=== PATIENT | male | born 1995 | race Caucasian/White ===

== ENCOUNTER 2017-03-26 20:52 | Emergency (ER) | payer OTHER ==
[~2017-03-26] VITALS: Ht 170.2 cm; Wt 65.8 kg
[~2017-03-26 20:52] MED LIST: BUTASPCAFT; Bactrim Ds Tab1 EACH PO; CEPH500 PO; CODBUTASA PO; Esgic Tablet1 EACH PO; IBUP600 PO; Norco 5-325 Ta1 EACH PO; Percocet 5-3251 EACH PO; SUMA25 PO; TOPI25 PO
[2017-03-28 00:42] LABS: Source Urine
[2017-07-17] MEDS ORDERED: NAPR220 PO (15:11)
[2017-07-17] MEDS ORDERED: BUTALBITAL-ACE1 EACH PO (15:15)
[2017-07-17] MEDS ORDERED: Bactrim Ds Tab1 EACH PO (15:33)
[2017-11-08] MEDS ORDERED: IBUP800 (20:30)
== END 2017-03-26 22:47 | disposition home or self-care (01) ==
LOC: ER 20:52
PROVIDERS: Physician Assistant
DX: R30.0 Dysuria (principal); F17.200 Nicotine dependence, unspecified, uncomplicated
CPT/HCPCS: 36415; 86592; 87491; 87591; 96372; 99283; J0696

== ENCOUNTER 2017-06-17 15:56 | Emergency (ER) | payer OTHER ==
[~2017-06-17] VITALS: Ht 170.2 cm; Wt 68.0 kg
== END 2017-06-17 17:28 | disposition home or self-care (01) ==
LOC: ER 15:56
DX: G43.909 Migraine, unspecified, not intractable, without status migrainosus (principal); F17.210 Nicotine dependence, cigarettes, uncomplicated
CPT/HCPCS: 96372; 99283; J1200; J1885; J2765

== ENCOUNTER 2017-11-11 15:23 | Emergency (ER) | payer OTHER ==
[~2017-11-11] VITALS: Ht 170.2 cm; Wt 68.0 kg
[~2017-11-11 15:23] MED LIST changes: +BUTALBITAL-ACE1 EACH PO; +IBUP800; +NAPR220 PO
[2017-11-11 15:49] LABS: BASOPHILS ABSOLUTE AUTO 0.02 K/mm3 (0.00-0.23); BASOPHILS PERCENT AUTO 0 % (0-2); EOSINOPHILS ABSOLUTE AUTO 0.03 K/mm3 (0.00-0.68); EOSINOPHILS PERCENT AUTO 0 % (0-6); Hemoglobin 15.6 g/dL (13.5-17.5); IMMATURE GRAN ABSOLUTE AUTO 0.03 K/mm3 (0.00-0.10); IMMATURE GRAN PERCENT AUTO 0 % (0-1); LYMPHOCYTES ABSOLUTE AUTO 3.66 K/mm3 (0.84-5.20); LYMPHOCYTES PERCENT AUTO 37 % (21-46); MONOCYTES ABSOLUTE AUTO 1.05 K/mm3 (0.16-1.47); MONOCYTES PERCENT AUTO 11 % (4-13); Mean Corpuscular HGB 30.6 pg (26.0-34.0); Mean Corpuscular HGB Conc 33.9 g/dL (31.5-36.5); Mean Corpuscular Volume 90 fL (80-100); Mean Platelet Volume 9.6 fL (9.1-12.4); NEUTROPHILS ABSOLUTE AUTO 5.06 K/mm3 (1.96-9.15); NEUTROPHILS PERCENT AUTO 51 % (41-73); Platelet Count 253 K/mm3 (150-400); RDW Coefficient Variation 12.3 % (11.7-14.2); RDW Standard Deviation 40.5 fL (35.1-46.3); White Blood Cell Count 9.85 K/mm3 (4.00-11.30)
[2017-11-11 16:11] LABS: Alanine Aminotransfer (ALT/SGP 36 U/L (12-78); Albumin, Blood 4.5 g/dL (3.4-5.0); Albumin/Globulin Ratio 1.2 (0.8-1.8); Alk Phos 78 U/L (50-136); Anion Gap 7 mmol/L (6-16); Aspartate Aminotrans (AST/SGOT 25 U/L (12-37); Bilirubin, Total 0.6 mg/dL (0.1-1.0); Blood Urea Nitrogen 12 mg/dL (8-24); Bun/Creatinine Ratio 12.8 (12.0-20.0); CO2, Blood 28 mmol/L (21-32); Calcium, Blood 9.2 mg/dL (8.5-10.1); Chloride, Blood 105 mmol/L (98-108); Creatinine, Blood 0.93 mg/dL (0.60-1.20); Globulin, Blood 3.7 g/dL (2.2-4.0); Glomerular Filtration Rate >60 (60-); Glucose, Blood 96 mg/dL (70-99); Potassium, Blood 3.9 mmol/L (3.5-5.5); Sodium, Blood 140 mmol/L (136-145); Total Protein, Blood 8.2 g/dL (6.4-8.2)
[2017-11-11] MEDS ORDERED: CYCL10 PO (16:17)
== END 2017-11-11 16:37 | disposition home or self-care (01) ==
LOC: ER 15:23
PROVIDERS: Internal Medicine
DX: R51 Headache (principal); F17.210 Nicotine dependence, cigarettes, uncomplicated
CPT/HCPCS: 36415; 80053; 85025; 99283

== ENCOUNTER 2017-11-15 12:46 | Emergency (ER) | payer OTHER ==
[~2017-11-15 12:46] MED LIST changes: +CYCL10 PO
== END 2017-11-15 13:30 | disposition left against medical advice (07) ==
LOC: ER 12:46
DX: Z53.21 Procedure and treatment not carried out due to patient leaving prior to being seen by health care provider (principal)

== ENCOUNTER 2021-02-17 18:50 | Emergency (ER) | payer OTHER ==
[~2021-02-17] VITALS: Ht 177.8 cm; Wt 74.8 kg
[2021-02-17 19:15] LABS: BASOPHILS ABSOLUTE AUTO 0.03 K/mm3 (0.00-0.23); BASOPHILS PERCENT AUTO 0 % (0-2); EOSINOPHILS ABSOLUTE AUTO 0.02 K/mm3 (0.00-0.68); EOSINOPHILS PERCENT AUTO 0 % (0-6); Hemoglobin 14.5 g/dL (13.5-17.5); IMMATURE GRAN ABSOLUTE AUTO 0.25 K/mm3 (0.00-0.10); IMMATURE GRAN PERCENT AUTO 3 % (0-1); LYMPHOCYTES ABSOLUTE AUTO 2.36 K/mm3 (0.84-5.20); LYMPHOCYTES PERCENT AUTO 28 % (21-46); MONOCYTES ABSOLUTE AUTO 0.57 K/mm3 (0.16-1.47); MONOCYTES PERCENT AUTO 7 % (4-13); Mean Corpuscular HGB 30.7 pg (26.0-34.0); Mean Corpuscular HGB Conc 34.5 g/dL (31.5-36.5); Mean Corpuscular Volume 89 fL (80-100); Mean Platelet Volume 9.6 fL (9.1-12.4); NEUTROPHILS PERCENT AUTO 61 % (41-73); Platelet Count 273 K/mm3 (150-400); RDW Standard Deviation 39.3 fL (35.1-46.3); Red Blood Cell Count 4.73 M/mm3 (4.30-5.90); White Blood Cell Count 8.33 K/mm3 (4.00-11.30)
[2021-02-17 19:32] LABS: Alanine Aminotransfer (ALT/SGP 66 U/L (12-78); Albumin, Blood 3.8 g/dL (3.4-5.0); Alk Phos 94 U/L (50-136); Anion Gap 5 mmol/L (6-16); Aspartate Aminotrans (AST/SGOT 57 U/L (12-37); Bilirubin, Total 0.5 mg/dL (0.1-1.0); Blood Urea Nitrogen 14 mg/dL (8-24); Bun/Creatinine Ratio 16.3 (12.0-20.0); CO2, Blood 26 mmol/L (21-32); Calcium, Blood 9.1 mg/dL (8.5-10.1); Chloride, Blood 108 mmol/L (98-108); Creatinine, Blood 0.86 mg/dL (0.60-1.20); Ethanol (Alcohol), Blood, Med 4 mg/dL; Globulin, Blood 3.8 g/dL (2.2-4.0); Glomerular Filtration Rate >60 (60-); Glucose, Blood 115 mg/dL (70-99); Sodium, Blood 139 mmol/L (136-145); Total Protein, Blood 7.6 g/dL (6.4-8.2)
[2021-02-17 19:35] LABS: Source, Urine Catheter
[2021-02-17 19:41] LABS: Appearance, Urine Hazy (Clear); Bilirubin, Urine Neg (Neg); Blood, Urine 1+ (Neg); Color, Urine Yellow (P-Yellow); Glucose Qualitative, Urine Neg (Neg); Ketones, Urine Neg (Neg); Leukocyte Esterase, Urine Neg (Neg); Nitrite, Urine Neg (Neg); Protein, Urine 2+ (Neg); Specific Gravity, Urine 1.015 (1.003-1.022); Urobilinogen, Urine NORM (Normal)
[2021-02-17 19:47] LABS: International Normalized Ratio 1.09; Prothrombin Time Results 11.4 Sec (9.7-11.5)
[2021-02-17 20:21] LABS: Amorphous Light (0-Heavy); Bacteria Rare /hpf; Squamous Epithelial Cells Few /hpf (Few); White Blood Cells, Urine 0-2 /hpf (0-5)
[2021-02-17 21:08] LABS: U Amphetamine Screen DETECTED; U Barbituate Screen Not Detected; U Benzodiazapine Screen Not Detected; U Buprenorphine Screen Not Detected; U Cannabinoids Screen DETECTED; U Cocaine Screen Not Detected; U Methadone Screen Not Detected; U Methamphetamine Screen DETECTED; U Opiates Screen Not Detected; U Oxycodone Screen Not Detected; U Phencyclidine Screen Not Detected; U Propoxyphene Screen Not Detected
== END 2021-02-17 20:12 | disposition short-term general hospital (02) ==
LOC: ER 18:50
PROVIDERS: Emergency Medicine
DX: S12.400A Unspecified displaced fracture of fifth cervical vertebra, initial encounter for closed fracture (principal); S12.500A Unspecified displaced fracture of sixth cervical vertebra, initial encounter for closed fracture; S12.600A Unspecified displaced fracture of seventh cervical vertebra, initial encounter for closed fracture; S22.049A Unspecified fracture of fourth thoracic vertebra, initial encounter for closed fracture; S22.059A Unspecified fracture of T5-T6 vertebra, initial encounter for closed fracture; F17.210 Nicotine dependence, cigarettes, uncomplicated; G43.909 Migraine, unspecified, not intractable, without status migrainosus; V89.2XXA Person injured in unspecified motor-vehicle accident, traffic, initial encounter
CPT/HCPCS: 51702; 70450; 71045; 71260; 72125; 72170; 74177; 80053; 81001; 83605; 83690; 85025; 85610; 86850; 86900; 86901; 96374; 99285-25; G0480; J7030; Q9967

== ENCOUNTER 2021-03-29 20:02 | Emergency (ER) | payer OTHER ==
[~2021-03-29] VITALS: Ht 172.7 cm; Wt 77.1 kg
== END 2021-03-29 22:25 | disposition left against medical advice (07) ==
LOC: ER 20:02
DX: Z53.21 Procedure and treatment not carried out due to patient leaving prior to being seen by health care provider (principal)
CPT/HCPCS: 99285

== ENCOUNTER 2021-05-22 12:37 | Emergency (ER) | payer OTHER ==
[~2021-05-22] VITALS: Ht 172.7 cm; Wt 74.8 kg
[~2021-05-22 12:37] MED LIST changes: +BACLOFEN5 M5 PO; +DULCOLAX400 MG/5 M PO; +METO10 PO; +NEURONTIN300 MG PO; +OXYC10TA19 PO; +ZEBUTAL 50-3251 EAC1 PO
[2021-05-22 13:18] LABS: BASOPHILS ABSOLUTE AUTO 0.02 K/mm3 (0.00-0.23); BASOPHILS PERCENT AUTO 0 % (0-2); EOSINOPHILS ABSOLUTE AUTO 0.02 K/mm3 (0.00-0.68); EOSINOPHILS PERCENT AUTO 0 % (0-6); Hematocrit 42.1 % (37.0-53.0); Hemoglobin 14.2 g/dL (13.5-17.5); IMMATURE GRAN ABSOLUTE AUTO 0.04 K/mm3 (0.00-0.10); IMMATURE GRAN PERCENT AUTO 0 % (0-1); LYMPHOCYTES ABSOLUTE AUTO 1.58 K/mm3 (0.84-5.20); LYMPHOCYTES PERCENT AUTO 11 % (21-46); MONOCYTES ABSOLUTE AUTO 1.04 K/mm3 (0.16-1.47); MONOCYTES PERCENT AUTO 7 % (4-13); Mean Corpuscular HGB 29.5 pg (26.0-34.0); Mean Corpuscular HGB Conc 33.7 g/dL (31.5-36.5); Mean Corpuscular Volume 88 fL (80-100); Mean Platelet Volume 9.7 fL (9.1-12.4); NEUTROPHILS ABSOLUTE AUTO 11.71 K/mm3 (1.96-9.15); NEUTROPHILS PERCENT AUTO 81 % (41-73); Platelet Count 243 K/mm3 (150-400); RDW Coefficient Variation 12.3 % (11.7-14.2); RDW Standard Deviation 39.6 fL (35.1-46.3); Red Blood Cell Count 4.81 M/mm3 (4.30-5.90); White Blood Cell Count 14.41 K/mm3 (4.00-11.30)
[2021-05-22 13:45] LABS: Alanine Aminotransfer (ALT/SGP 17 U/L (12-78); Alk Phos 102 U/L (50-136); Anion Gap 3 mmol/L (6-16); Aspartate Aminotrans (AST/SGOT 12 U/L (12-37); Bilirubin, Total 1.3 mg/dL (0.1-1.0); Blood Urea Nitrogen 9 mg/dL (8-24); Bun/Creatinine Ratio 14.8 (12.0-20.0); CO2, Blood 23 mmol/L (21-32); Calcium, Blood 9.5 mg/dL (8.5-10.1); Chloride, Blood 110 mmol/L (98-108); Creatinine, Blood 0.61 mg/dL (0.60-1.20); Globulin, Blood 4.1 g/dL (2.2-4.0); Glomerular Filtration Rate >60 (60-); Glucose, Blood 119 mg/dL (70-99); Potassium, Blood 3.8 mmol/L (3.5-5.5); Sodium, Blood 136 mmol/L (136-145); Total Protein, Blood 8.1 g/dL (6.4-8.2)
[2021-05-22 13:48] LABS: Source, Urine Clean Catch
[2021-05-22 13:53] LABS: Bilirubin, Urine Neg (Neg); Blood, Urine Neg (Neg); Color, Urine Yellow (P-Yellow); Glucose Qualitative, Urine Neg (Neg); Ketones, Urine Neg (Neg); Leukocyte Esterase, Urine 1+ (Neg); Nitrite, Urine Neg (Neg); Protein, Urine Neg (Neg); Specific Gravity, Urine 1.015 (1.003-1.022); Urobilinogen, Urine 2+ (Normal)
[2021-05-22 14:14] LABS: Appearance, Urine Hazy (Clear)
[2021-05-22 14:16] LABS: Red Blood Cells, Urine 0-2 /hpf (0-2)
[2021-05-22 14:17] LABS: Bacteria Mod /hpf; Squamous Epithelial Cells Few /hpf (Few)
[2021-05-22 14:18] LABS: Amorphous Light (0-Heavy)
[2021-05-22 18:55] LABS: Influenza A, PCR NEGATIVE (NEGATIVE); Influenza B, PCR NEGATIVE (NEGATIVE); Resp Syncytial Virus, PCR NEGATIVE (NEGATIVE); SARS-Cov-2 (COVID-19) PCR, MMC NEGATIVE (NEGATIVE)
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
--- NOTE | 2021-05-23 10:20 | NUR ---
CM informed this AM, PT discharged home from ER on previous night. Per RN, PT opted to return home and await [facility] notification regarding acceptance to SNF or inpatient rehab. PT expressed dissatisfaction with bed accommodations in ER and preferred to return home where he would be more comfortable. CM left for [place] liaison to update.
== END 2021-05-22 18:14 ==
LOC: ER 12:37
PROVIDERS: Emergency Medicine; Physician Assistant
DX: J40 Bronchitis, not specified as acute or chronic (principal); R62.7 Adult failure to thrive; F17.210 Nicotine dependence, cigarettes, uncomplicated; Z79.899 Other long term (current) drug therapy
CPT/HCPCS: 0241U; 36415; 71045; 74018; 80053; 81001; 83605; 85025; 87086; 87147; 94640; 94664; 96374; 96375; 99284-25; J1885; J3010

== ENCOUNTER 2021-07-22 08:00 | Day surgery (SDC) | payer OTHER | END 2021-07-22 23:59 | disposition home or self-care (01) | LOC: WOUND 08:00 | DX: L89.320 Pressure ulcer of left buttock, unstageable (principal); G82.54 Quadriplegia, C5-C7 incomplete; S14.107D Unspecified injury at C7 level of cervical spinal cord, subsequent encounter; F17.210 Nicotine dependence, cigarettes, uncomplicated; V89.2XXD Person injured in unspecified motor-vehicle accident, traffic, subsequent encounter | CPT/HCPCS: 99406; A9270; G0463 ==

== ENCOUNTER 2021-07-27 11:31 | Emergency (ER) | payer OTHER ==
[~2021-07-27] VITALS: Ht 172.7 cm; Wt 65.8 kg
[2021-07-27 12:58] LABS: BASOPHILS ABSOLUTE AUTO 0.02 K/mm3 (0.00-0.23); BASOPHILS PERCENT AUTO 0 % (0-2); EOSINOPHILS ABSOLUTE AUTO 0.04 K/mm3 (0.00-0.68); EOSINOPHILS PERCENT AUTO 0 % (0-6); Hematocrit 41.6 % (37.0-53.0); Hemoglobin 14.4 g/dL (13.5-17.5); IMMATURE GRAN ABSOLUTE AUTO 0.02 K/mm3 (0.00-0.10); IMMATURE GRAN PERCENT AUTO 0 % (0-1); LYMPHOCYTES ABSOLUTE AUTO 2.01 K/mm3 (0.84-5.20); LYMPHOCYTES PERCENT AUTO 20 % (21-46); MONOCYTES ABSOLUTE AUTO 0.55 K/mm3 (0.16-1.47); MONOCYTES PERCENT AUTO 6 % (4-13); Mean Corpuscular HGB 29.9 pg (26.0-34.0); Mean Corpuscular HGB Conc 34.6 g/dL (31.5-36.5); Mean Corpuscular Volume 87 fL (80-100); Mean Platelet Volume 10.7 fL (9.1-12.4); NEUTROPHILS PERCENT AUTO 74 % (41-73); Platelet Count 250 K/mm3 (150-400); RDW Coefficient Variation 13.6 % (11.7-14.2); RDW Standard Deviation 43.6 fL (35.1-46.3); Red Blood Cell Count 4.81 M/mm3 (4.30-5.90); White Blood Cell Count 9.94 K/mm3 (4.00-11.30)
[2021-07-27 13:10] LABS: Albumin, Blood 3.7 g/dL (3.4-5.0); Calcium, Blood 8.7 mg/dL (8.5-10.1); Creatinine, Blood 0.47 mg/dL (0.60-1.20); Globulin, Blood 3.6 g/dL (2.2-4.0); Potassium, Blood 3.7 mmol/L (3.5-5.5); Total Protein, Blood 7.3 g/dL (6.4-8.2)
[2021-07-27 13:14] LABS: Source, Urine Clean Catch
[2021-07-27 13:24] LABS: Appearance, Urine Clear (Clear); Bilirubin, Urine Neg (Neg); Blood, Urine Neg (Neg); Color, Urine Yellow (P-Yellow); Glucose Qualitative, Urine Neg (Neg); Ketones, Urine Neg (Neg); Leukocyte Esterase, Urine Neg (Neg); Nitrite, Urine Neg (Neg); Protein, Urine Neg (Neg); Specific Gravity, Urine 1.015 (1.003-1.022); Urobilinogen, Urine NORM (Normal)
[2021-07-27] MEDS ORDERED: DIAZ2 PO ×2 (16:03→16:04)
[2021-07-27] MEDS ORDERED: SENNA LAXATIVE8.6 MG PO (22:29)
== END 2021-07-27 16:26 | disposition home or self-care (01) ==
LOC: ER 11:31
PROVIDERS: Student in an Organized Health Care Education/Training Program
DX: R14.0 Abdominal distension (gaseous) (principal); S14.106S Unspecified injury at C6 level of cervical spinal cord, sequela; F11.90 Opioid use, unspecified, uncomplicated; G82.50 Quadriplegia, unspecified; F17.210 Nicotine dependence, cigarettes, uncomplicated
CPT/HCPCS: 51701; 80053; 81003; 83690; 85025; 99284; A9270

== ENCOUNTER 2021-07-29 02:08 | Day surgery (SDC) | payer OTHER ==
[~2021-07-29 02:08] MED LIST changes: +DIAZ2 PO; +SENNA LAXATIVE8.6 MG PO
== END 2021-07-29 23:10 | disposition home or self-care (01) ==
LOC: WOUND 02:08
DX: L89.323 Pressure ulcer of left buttock, stage 3 (principal); S14.107A Unspecified injury at C7 level of cervical spinal cord, initial encounter; G82.54 Quadriplegia, C5-C7 incomplete
CPT/HCPCS: A9270

== ENCOUNTER 2021-08-12 02:03 | Day surgery (SDC) | payer OTHER | END 2021-08-12 22:55 | disposition home or self-care (01) | LOC: WOUND 02:03 | DX: L89.323 Pressure ulcer of left buttock, stage 3 (principal); G82.54 Quadriplegia, C5-C7 incomplete; S14.157A Other incomplete lesion at C7 level of cervical spinal cord, initial encounter; X58.XXXA Exposure to other specified factors, initial encounter | CPT/HCPCS: A9270 ==

== ENCOUNTER 2021-08-19 03:41 | Day surgery (SDC) | payer OTHER | END 2021-08-19 22:37 | disposition home or self-care (01) | LOC: WOUND 03:41 | DX: L89.323 Pressure ulcer of left buttock, stage 3 (principal); G82.54 Quadriplegia, C5-C7 incomplete; S14.107D Unspecified injury at C7 level of cervical spinal cord, subsequent encounter | CPT/HCPCS: G0463 ==

== ENCOUNTER 2021-08-26 05:36 | Day surgery (SDC) | payer OTHER ==
[2021-08-27] MEDS ORDERED: Valium5 MG PO (13:45)
== END 2021-08-26 22:48 | disposition home or self-care (01) ==
LOC: WOUND
DX: L89.324 Pressure ulcer of left buttock, stage 4 (principal); G82.54 Quadriplegia, C5-C7 incomplete; S14.107D Unspecified injury at C7 level of cervical spinal cord, subsequent encounter; X58.XXXD Exposure to other specified factors, subsequent encounter
CPT/HCPCS: 99406; A9270; G0463

== ENCOUNTER 2021-08-27 09:59 | Emergency (ER) | payer OTHER ==
[~2021-08-27] VITALS: Ht 172.7 cm; Wt 65.8 kg
[2021-08-27 10:38] LABS: BASOPHILS ABSOLUTE AUTO 0.02 K/mm3 (0.00-0.23); BASOPHILS PERCENT AUTO 0 % (0-2); EOSINOPHILS ABSOLUTE AUTO 0.05 K/mm3 (0.00-0.68); EOSINOPHILS PERCENT AUTO 1 % (0-6); Hematocrit 40.1 % (37.0-53.0); IMMATURE GRAN ABSOLUTE AUTO 0.03 K/mm3 (0.00-0.10); IMMATURE GRAN PERCENT AUTO 0 % (0-1); LYMPHOCYTES ABSOLUTE AUTO 2.48 K/mm3 (0.84-5.20); LYMPHOCYTES PERCENT AUTO 35 % (21-46); MONOCYTES ABSOLUTE AUTO 0.71 K/mm3 (0.16-1.47); MONOCYTES PERCENT AUTO 10 % (4-13); Mean Corpuscular HGB 30.3 pg (26.0-34.0); Mean Corpuscular HGB Conc 34.9 g/dL (31.5-36.5); Mean Corpuscular Volume 87 fL (80-100); Mean Platelet Volume 9.5 fL (9.1-12.4); NEUTROPHILS ABSOLUTE AUTO 3.72 K/mm3 (1.96-9.15); NEUTROPHILS PERCENT AUTO 53 % (41-73); Platelet Count 264 K/mm3 (150-400); RDW Coefficient Variation 13.2 % (11.7-14.2); RDW Standard Deviation 41.8 fL (35.1-46.3); Red Blood Cell Count 4.62 M/mm3 (4.30-5.90); White Blood Cell Count 7.01 K/mm3 (4.00-11.30)
[2021-08-27 10:46] LABS: Albumin, Blood 3.7 g/dL (3.4-5.0); Albumin/Globulin Ratio 0.9 (0.8-1.8); Bilirubin, Total 0.6 mg/dL (0.1-1.0); Bun/Creatinine Ratio 15.1 (12.0-20.0); Calcium, Blood 9.5 mg/dL (8.5-10.1); Creatinine, Blood 0.53 mg/dL (0.60-1.20); Globulin, Blood 3.9 g/dL (2.2-4.0); Potassium, Blood 3.9 mmol/L (3.5-5.5); Total Protein, Blood 7.6 g/dL (6.4-8.2)
[2021-08-27 11:38] LABS: Source, Urine Voided
[2021-08-27 11:51] LABS: Appearance, Urine Clear (Clear); Bilirubin, Urine Neg (Neg); Blood, Urine Neg (Neg); Color, Urine Yellow (P-Yellow); Glucose Qualitative, Urine Neg (Neg); Ketones, Urine Neg (Neg); Leukocyte Esterase, Urine 1+ (Neg); Nitrite, Urine Neg (Neg); Protein, Urine Neg (Neg); Urobilinogen, Urine NORM (Normal); pH, Urine 6.5 (5.0-8.0)
[2021-08-27 12:16] LABS: Red Blood Cells, Urine 0-2 /hpf (0-2)
[2021-08-27 12:17] LABS: Bacteria Mod /hpf; Squamous Epithelial Cells Rare /hpf (Few)
[2021-08-27 12:18] LABS: Mucus Light (0-Heavy)
[2021-08-27] MEDS ORDERED: Valium5 MG PO (13:45)
== END 2021-08-27 15:14 | disposition home or self-care (01) ==
LOC: ER 09:59
PROVIDERS: Emergency Medicine
DX: M62.838 Other muscle spasm (principal); F17.210 Nicotine dependence, cigarettes, uncomplicated; Z79.899 Other long term (current) drug therapy
CPT/HCPCS: 51701; 74177; 80053; 81001; 83690; 85025; J2550; J3360; Q9967

== ENCOUNTER → 2021-08-28 | Outpatient (CLI) | payer OTHER ==
[~2021-08-28] MED LIST changes: +Valium5 MG PO
== END | disposition home or self-care (01) ==
LOC: LAB 15:00 → LAB SHORT 15:00
DX: N30.00 Acute cystitis without hematuria (principal)
CPT/HCPCS: 87077; 87086; 87186

== ENCOUNTER → 2021-09-05 | Outpatient (CLI) | payer OTHER ==
[~2021-09-05] MED LIST changes: +DICY20 PO; +Roxicodone5 MG PO; +VALIUM PO
== END | disposition home or self-care (01) ==
LOC: LAB 14:30 → LAB SHORT 14:30
DX: R39.89 Other symptoms and signs involving the genitourinary system (principal)
CPT/HCPCS: 87086

== ENCOUNTER 2021-09-06 04:47 | Emergency (ER) | payer OTHER ==
[~2021-09-06] VITALS: Ht 172.7 cm; Wt 68.0 kg
[~2021-09-06 04:47] MED LIST changes: -DICY20 PO; -Roxicodone5 MG PO; -VALIUM PO
[2021-09-06 06:32] LABS: BASOPHILS ABSOLUTE AUTO 0.03 K/mm3 (0.00-0.23); BASOPHILS PERCENT AUTO 0 % (0-2); EOSINOPHILS ABSOLUTE AUTO 0.05 K/mm3 (0.00-0.68); EOSINOPHILS PERCENT AUTO 1 % (0-6); Hematocrit 40.7 % (37.0-53.0); Hemoglobin 14.4 g/dL (13.5-17.5); IMMATURE GRAN ABSOLUTE AUTO 0.04 K/mm3 (0.00-0.10); IMMATURE GRAN PERCENT AUTO 0 % (0-1); LYMPHOCYTES PERCENT AUTO 24 % (21-46); MONOCYTES ABSOLUTE AUTO 0.84 K/mm3 (0.16-1.47); MONOCYTES PERCENT AUTO 8 % (4-13); Mean Corpuscular HGB Conc 35.4 g/dL (31.5-36.5); Mean Corpuscular Volume 88 fL (80-100); Mean Platelet Volume 10.2 fL (9.1-12.4); NEUTROPHILS PERCENT AUTO 67 % (41-73); Platelet Count 241 K/mm3 (150-400); RDW Coefficient Variation 13.1 % (11.7-14.2); RDW Standard Deviation 41.9 fL (35.1-46.3); Red Blood Cell Count 4.65 M/mm3 (4.30-5.90); White Blood Cell Count 10.36 K/mm3 (4.00-11.30)
[2021-09-06 06:46] LABS: Bun/Creatinine Ratio 16.3 (12.0-20.0); Calcium, Blood 9.4 mg/dL (8.5-10.1); Creatinine, Blood 0.49 mg/dL (0.60-1.20); Potassium, Blood 4.4 mmol/L (3.5-5.5)
[2021-09-06] MEDS ORDERED: Roxicodone5 MG PO ×2 (06:53→07:06)
[2021-09-06] MEDS ORDERED: VALIUM PO (07:06)
== END 2021-09-06 09:37 | disposition home or self-care (01) ==
LOC: ER 04:47
PROVIDERS: Emergency Medicine
DX: M62.838 Other muscle spasm (principal); S14.106A Unspecified injury at C6 level of cervical spinal cord, initial encounter; F11.23 Opioid dependence with withdrawal; N39.0 Urinary tract infection, site not specified; F17.210 Nicotine dependence, cigarettes, uncomplicated; Z79.899 Other long term (current) drug therapy; X58.XXXA Exposure to other specified factors, initial encounter
CPT/HCPCS: 80048; 85025; A9270; J1885; J2405

== ENCOUNTER 2021-09-09 05:16 | Day surgery (SDC) | payer OTHER ==
[~2021-09-09 05:16] MED LIST changes: +Roxicodone5 MG PO; +VALIUM PO
== END 2021-09-09 23:55 | disposition home or self-care (01) ==
LOC: WOUND 05:16
DX: L89.324 Pressure ulcer of left buttock, stage 4 (principal); S14.107A Unspecified injury at C7 level of cervical spinal cord, initial encounter; G82.54 Quadriplegia, C5-C7 incomplete
CPT/HCPCS: A9270

== ENCOUNTER 2021-10-05 13:32 | Emergency (ER) | payer OTHER ==
[~2021-10-05] VITALS: Ht 172.7 cm; Wt 68.0 kg
[2021-10-05 14:23] LABS: BASOPHILS ABSOLUTE AUTO 0.03 K/mm3 (0.00-0.23); BASOPHILS PERCENT AUTO 0 % (0-2); EOSINOPHILS ABSOLUTE AUTO 0.02 K/mm3 (0.00-0.68); EOSINOPHILS PERCENT AUTO 0 % (0-6); Hematocrit 39.4 % (37.0-53.0); Hemoglobin 13.6 g/dL (13.5-17.5); IMMATURE GRAN ABSOLUTE AUTO 0.07 K/mm3 (0.00-0.10); IMMATURE GRAN PERCENT AUTO 1 % (0-1); LYMPHOCYTES PERCENT AUTO 8 % (21-46); MONOCYTES ABSOLUTE AUTO 0.89 K/mm3 (0.16-1.47); MONOCYTES PERCENT AUTO 7 % (4-13); Mean Corpuscular HGB 31.1 pg (26.0-34.0); Mean Corpuscular HGB Conc 34.5 g/dL (31.5-36.5); Mean Corpuscular Volume 90 fL (80-100); Mean Platelet Volume 9.9 fL (9.1-12.4); NEUTROPHILS ABSOLUTE AUTO 11.49 K/mm3 (1.96-9.15); NEUTROPHILS PERCENT AUTO 85 % (41-73); Platelet Count 266 K/mm3 (150-400); RDW Coefficient Variation 12.7 % (11.7-14.2); RDW Standard Deviation 42.3 fL (35.1-46.3); Red Blood Cell Count 4.37 M/mm3 (4.30-5.90)
[2021-10-05 14:38] LABS: Albumin, Blood 3.4 g/dL (3.4-5.0); Albumin/Globulin Ratio 0.9 (0.8-1.8); Bilirubin, Total 0.5 mg/dL (0.1-1.0); Bun/Creatinine Ratio 14.8 (12.0-20.0); Creatinine, Blood 0.47 mg/dL (0.60-1.20); Globulin, Blood 3.9 g/dL (2.2-4.0); Potassium, Blood 3.6 mmol/L (3.5-5.5); Total Protein, Blood 7.3 g/dL (6.4-8.2)
[2021-10-05 15:34] LABS: Source, Urine Clean Catch
[2021-10-05 15:37] LABS: Appearance, Urine Clear (Clear); Bilirubin, Urine Neg (Neg); Blood, Urine Neg (Neg); Color, Urine Yellow (P-Yellow); Glucose Qualitative, Urine Neg (Neg); Ketones, Urine Neg (Neg); Leukocyte Esterase, Urine Neg (Neg); Nitrite, Urine Neg (Neg); Protein, Urine Neg (Neg); Urobilinogen, Urine NORM (Normal)
[2021-10-05] MEDS ORDERED: DICY20 PO (16:53)
== END 2021-10-05 17:05 | disposition home or self-care (01) ==
LOC: ER 13:32
PROVIDERS: Family Medicine
DX: K29.70 Gastritis, unspecified, without bleeding (principal); F17.210 Nicotine dependence, cigarettes, uncomplicated; Z79.899 Other long term (current) drug therapy
CPT/HCPCS: 74177; 80053; 81003; 83690; 85025; 96374-59; 99284-25; J1885; J7030; Q9967

== ENCOUNTER 2021-10-07 00:04 | Day surgery (SDC) | payer OTHER ==
[~2021-10-07 00:04] MED LIST changes: +DICY20 PO
== END 2021-10-07 23:54 | disposition home or self-care (01) ==
LOC: WOUND 00:04
DX: L89.324 Pressure ulcer of left buttock, stage 4 (principal); S14.107D Unspecified injury at C7 level of cervical spinal cord, subsequent encounter; X58.XXXD Exposure to other specified factors, subsequent encounter; G82.54 Quadriplegia, C5-C7 incomplete
CPT/HCPCS: A9270; G0463

== ENCOUNTER 2021-10-21 04:16 | Day surgery (SDC) | payer OTHER | END 2021-10-21 23:22 | disposition home or self-care (01) | LOC: WOUND 04:16 | DX: L89.324 Pressure ulcer of left buttock, stage 4 (principal); G82.54 Quadriplegia, C5-C7 incomplete; S14.107D Unspecified injury at C7 level of cervical spinal cord, subsequent encounter; R10.30 Lower abdominal pain, unspecified ==

== ENCOUNTER 2021-10-28 02:18 | Day surgery (SDC) | payer OTHER | END 2021-10-28 23:59 | disposition home or self-care (01) | LOC: WOUND 02:18 | DX: L89.324 Pressure ulcer of left buttock, stage 4 (principal); G82.54 Quadriplegia, C5-C7 incomplete; R10.30 Lower abdominal pain, unspecified | CPT/HCPCS: A9270; G0463 ==

== ENCOUNTER 2021-11-11 01:53 | Day surgery (SDC) | payer OTHER | END 2021-11-11 23:13 | disposition home or self-care (01) | LOC: WOUND 01:53 | DX: L89.324 Pressure ulcer of left buttock, stage 4 (principal); G82.54 Quadriplegia, C5-C7 incomplete; S14.107D Unspecified injury at C7 level of cervical spinal cord, subsequent encounter; X58.XXXD Exposure to other specified factors, subsequent encounter; R10.30 Lower abdominal pain, unspecified | CPT/HCPCS: G0463 ==

== ENCOUNTER 2021-12-02 02:28 | Day surgery (SDC) | payer OTHER | END 2021-12-02 22:48 | disposition home or self-care (01) | LOC: WOUND 02:28 | DX: L89.324 Pressure ulcer of left buttock, stage 4 (principal); G82.54 Quadriplegia, C5-C7 incomplete; S14.107D Unspecified injury at C7 level of cervical spinal cord, subsequent encounter; X58.XXXD Exposure to other specified factors, subsequent encounter; R10.30 Lower abdominal pain, unspecified | CPT/HCPCS: G0463 ==

== ENCOUNTER → 2021-12-18 | Outpatient (CLI) | payer OTHER | LOC: LAB 12:11 → LAB SHORT 12:11 → LAB FUT 12-03 13:40 | DX: R10.9 Unspecified abdominal pain (principal) | CPT/HCPCS: 83993 ==

== ENCOUNTER 2021-12-23 01:51 | Day surgery (SDC) | payer OTHER | END 2021-12-23 23:12 | disposition home or self-care (01) | LOC: WOUND 01:51 | DX: L89.324 Pressure ulcer of left buttock, stage 4 (principal); G82.50 Quadriplegia, unspecified | CPT/HCPCS: A9270; G0463 ==

== ENCOUNTER 2022-01-13 08:00 | Day surgery (SDC) | payer OTHER | END 2022-01-13 23:59 | disposition home or self-care (01) | LOC: WOUND 08:00 | DX: L89.324 Pressure ulcer of left buttock, stage 4 (principal); G82.54 Quadriplegia, C5-C7 incomplete | CPT/HCPCS: A9270; G0463 ==

== ENCOUNTER 2022-01-16 12:22 | Emergency (ER) | payer OTHER ==
[~2022-01-16] VITALS: Ht 172.7 cm; Wt 63.5 kg
[2022-01-16 13:29] LABS: Source, Urine Straight Cath
[2022-01-16 13:30] LABS: BASOPHILS ABSOLUTE AUTO 0.02 K/mm3 (0.00-0.23); BASOPHILS PERCENT AUTO 0 % (0-2); EOSINOPHILS ABSOLUTE AUTO 0.08 K/mm3 (0.00-0.68); EOSINOPHILS PERCENT AUTO 1 % (0-6); Hematocrit 41.5 % (37.0-53.0); Hemoglobin 14.4 g/dL (13.5-17.5); IMMATURE GRAN ABSOLUTE AUTO 0.03 K/mm3 (0.00-0.10); IMMATURE GRAN PERCENT AUTO 0 % (0-1); LYMPHOCYTES ABSOLUTE AUTO 2.53 K/mm3 (0.84-5.20); LYMPHOCYTES PERCENT AUTO 33 % (21-46); MONOCYTES ABSOLUTE AUTO 0.63 K/mm3 (0.16-1.47); MONOCYTES PERCENT AUTO 8 % (4-13); Mean Corpuscular HGB Conc 34.7 g/dL (31.5-36.5); Mean Corpuscular Volume 89 fL (80-100); Mean Platelet Volume 9.9 fL (9.1-12.4); NEUTROPHILS ABSOLUTE AUTO 4.47 K/mm3 (1.96-9.15); NEUTROPHILS PERCENT AUTO 58 % (41-73); Platelet Count 280 K/mm3 (150-400); RDW Coefficient Variation 12.6 % (11.7-14.2); RDW Standard Deviation 41.2 fL (35.1-46.3); Red Blood Cell Count 4.64 M/mm3 (4.30-5.90); White Blood Cell Count 7.76 K/mm3 (4.00-11.30)
[2022-01-16 13:33] LABS: Appearance, Urine Clear (Clear); Bilirubin, Urine Neg (Neg); Blood, Urine 2+ (Neg); Color, Urine Yellow (P-Yellow); Glucose Qualitative, Urine Neg (Neg); Ketones, Urine Neg (Neg); Leukocyte Esterase, Urine 3+ (Neg); Nitrite, Urine Neg (Neg); Protein, Urine 1+ (Neg); Specific Gravity, Urine 1.015 (1.003-1.022); Urobilinogen, Urine NORM (Normal); pH, Urine 6.5 (5.0-8.0)
[2022-01-16 13:43] LABS: Bacteria Mod /hpf; Squamous Epithelial Cells Rare /hpf (Few)
[2022-01-16 13:54] LABS: Albumin, Blood 3.5 g/dL (3.4-5.0); Albumin/Globulin Ratio 0.9 (0.8-1.8); Bilirubin, Total 0.5 mg/dL (0.1-1.0); Bun/Creatinine Ratio 14.2 (12.0-20.0); Calcium, Blood 8.7 mg/dL (8.5-10.1); Creatinine, Blood 0.63 mg/dL (0.60-1.20); Globulin, Blood 3.7 g/dL (2.2-4.0); Potassium, Blood 3.7 mmol/L (3.5-5.5); Total Protein, Blood 7.2 g/dL (6.4-8.2)
[2022-01-16] MEDS ORDERED: CIPR500 PO (16:22)
== END 2022-01-16 16:50 | disposition home or self-care (01) ==
LOC: ER 12:22
PROVIDERS: Student in an Organized Health Care Education/Training Program
DX: N39.0 Urinary tract infection, site not specified (principal); G43.909 Migraine, unspecified, not intractable, without status migrainosus; F17.210 Nicotine dependence, cigarettes, uncomplicated; Z79.899 Other long term (current) drug therapy
CPT/HCPCS: 36415; 51701; 72170; 80053; 81001; 85025; 87077; 87086; 87186; A9270; J7120

== ENCOUNTER 2022-02-17 02:12 | Day surgery (SDC) | payer OTHER ==
[~2022-02-17 02:12] MED LIST changes: +CIPR500 PO
== END 2022-02-17 22:42 | disposition home or self-care (01) ==
LOC: WOUND 02:12
DX: L89.324 Pressure ulcer of left buttock, stage 4 (principal); G82.54 Quadriplegia, C5-C7 incomplete; R10.30 Lower abdominal pain, unspecified
CPT/HCPCS: A9270; G0463

== ENCOUNTER 2022-03-12 01:44 | Day surgery (SDC) | payer OTHER | END 2022-03-12 22:38 | disposition home or self-care (01) | LOC: WOUND 01:44 | DX: L89.324 Pressure ulcer of left buttock, stage 4 (principal); L89.623 Pressure ulcer of left heel, stage 3; L89.312 Pressure ulcer of right buttock, stage 2; G82.54 Quadriplegia, C5-C7 incomplete; R10.30 Lower abdominal pain, unspecified | CPT/HCPCS: A9270; G0463 ==